=== PATIENT | female | born 1940 | race Caucasian/White ===

== ENCOUNTER → 2017-11-23 | Outpatient (CLI) | payer OTHER, MEDICARE ==
[~2017-11-23] MED LIST: ALLOPURINOL100 MG PO; CATAPRES0.1 MG PO; COLCRYS0.6 MG PO; COREG25 M1 PO; CRESTOR5 MG PO; GLUCOTROL5 MG PO; KLONOPIN0.5 M1 PO; LASIX20 MG PO; LEVOTHYROXINE100 MCG PO; LISINOPRIL10 MG PO; NORVASC10 MG PO; TRAMADOL HCL50 MG PO
== END | disposition home or self-care (01) ==
LOC: OPR 07:17 → EDSTATUS 08:00 → OPR 08:00
PROC: 0TB03ZX Excision of Right Kidney, Percutaneous Approach, Diagnostic (ICD-10-PCS; principal; 2017-11-23)
DX: R80.9 Proteinuria, unspecified (principal); I12.9 Hypertensive chronic kidney disease with stage 1 through stage 4 chronic kidney disease, or unspecified chronic kidney disease; E11.22 Type 2 diabetes mellitus with diabetic chronic kidney disease; N18.3 Chronic kidney disease, stage 3 (moderate); E03.9 Hypothyroidism, unspecified
CPT/HCPCS: 77012; 85610; 85730; 88305; 88313 90; 88346 90; 88348 90; J3010